=== PATIENT | male | born 1950 | race Caucasian/White ===

== ENCOUNTER 2016-09-13 11:04 | Inpatient (IN) | payer OTHER, MEDICARE ==
--- NOTE | ~2016-09-13 | CN ---
Consultation Report [facility] [address] [place] [place]. [address] NAME: CINTIA RANKIN JR : 50 STATUS : ADM IN PAT#: [id number] AGE: 65 ADM/REG DATE : 09/13/16 MR#: [id number] REPORT SERV DATE: 09/14/16 DICTATED BY: Mike GALLO DATE: 09/14/16 REPORT STATUS : Draft TRANSCRIBED BY: MODL DATE: 09/14/16 DATE OF CONSULTATION: 09/14/2016 CHIEF COMPLAINT: Urinary retention with recurrent urinary tract infection, possible sepsis. HISTORY OF PRESENT ILLNESS: Mr. Rankin is a pleasant 65-year-old white male, admitted by Dr. Rivera with urinary retention of apparent large volume, although not documented, fever to 102 and evidence of UTI with possible sepsis. He was admitted and discharged for a similar problem in July of this year. He denies previous voiding dysfunction until recently. Flomax has been started. He has a significant history of a living-related kidney transplant x2, the most recent about 10 years ago. His creatinine on admission was 1.77, now 1.43. His white count was 6.4 down to 4.1. His baseline creatinine is usually 1.5 to 2.0. PAST MEDICAL HISTORY: 1. End-stage renal disease due to IgA nephropathy, status post renal transplant x2. 2. Posttransplant diabetes mellitus. 3. Ischemic cardiomyopathy. 4. Peripheral vascular disease. 5. Chronic colchicine myopathy. 6. PTSD. 7. Polyoma virus infection with interstitial nephritis. PAST SURGICAL HISTORY: 1. Living-related kidney transplant x2. His ramona kidneys remain in place. 2. Bilateral femoropopliteal bypass. ALLERGIES: CALCIUM-CHANNEL BLOCKERS AND COLCHICINE. CURRENT MEDICATIONS: Zyloprim, alogliptin, Halfprin, Dulcolax, Wellbutrin, Coreg, Maxipime, Plavix, Glucotrol, heparin, NovoLog insulin, Imdur, Arava, Mycostatin oral, [place], Percocet, Phospha, Deltasone, Entresto, Theragran, Zocor, Prograf, Restoril, and Valcyte. He has also been given a dose of vancomycin and he is on Flomax. He has a host of p.r.n. medications. SOCIAL HISTORY: The patient denies alcohol or tobacco use. FAMILY HISTORY: Negative for urologic disease. REVIEW OF SYSTEMS: A full 12-point review of systems negative except as noted above. PHYSICAL EXAMINATION: GENERAL: Chronically ill-appearing pleasant 65-year-old gentleman. VITAL SIGNS: Blood pressure 117/65, afebrile. HEENT: Normocephalic, atraumatic. CHEST: No respiratory distress. Consultation Report [place] [address] [place] [place]. [address] NAME: CINTIA RANKIN JR : 50 STATUS : ADM IN PAT#: [id number] AGE: 65 ADM/REG DATE : 09/13/16 MR#: [id number] REPORT SERV DATE: 09/14/16 DICTATED BY: Mike GALLO DATE: 09/14/16 REPORT STATUS : Draft TRANSCRIBED BY: TOVA DATE: 09/14/16 HEART: Regular rate and rhythm. ABDOMEN: Protuberant, nontender, nondistended. He has scars from his previous surgeries. : Normal external genitalia. Indwelling Pierson catheter. EXTREMITIES: No peripheral edema noted. The patient is ambulatory currently with assistance. PERTINENT LABORATORIES: Noted. Creatinine 1.77, down to 1.43 today. White count has been normal. His urinalysis shows cloudy urine with many white cells, white cell clumps, and moderate bacteria. His culture is preliminarily growing a gram-negative Bacilli. His previous culture in July was E. coli with some resistance. He is currently on cefepime. IMPRESSION: 1. Urinary retention with new-onset voiding dysfunction. 2. Urinary tract infection; possible sepsis. 3. History of renal transplant x2. PLAN: 1. He is on Flomax and I will continue that. 2. We would leave Pierson for now and plan a voiding trial when appropriate. 3. I will check a noncontrast CT scan of his abdomen and pelvis just to better evaluate his upper tracts. The ultrasound in July was unremarkable, but I think that CT might give us a little more information. CAROLA/TOVA Mike Gallo M.D. / [id number] CC: Main Rivera M.D.
--- NOTE | ~2016-09-13 | DS ---
Discharge Summary [facility] [address] [place]. [address] NAME: CINTIA BEYER JR : 50 STATUS : DIS IN PAT#: [id number] AGE: 65 ADM/REG DATE : 09/13/16 MR#: [id number] REPORT SERV DATE: 09/30/16 DICTATED BY: MARY MAYER DATE: 09/29/16 REPORT STATUS : Draft TRANSCRIBED BY: MODSidney DATE: 09/29/16 Data Collection from hospitalization DISCHARGE DIAGNOSES: 1. Sepsis secondary to urinary tract infection. 2. History of renal transplant. 3. History of congestive heart failure. 4. Gallstone. 5. Coronary artery disease. 6. Peripheral vascular disease. 7. Post transplant diabetes mellitus. 8. Peripheral vascular disease. 9. 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 10.Posttraumatic stress disorder. 11.History of polyomavirus virus infection and interstitial nephritis related to calcium channel trent use in the past. 12.History of skin cancer. 13.Ischemic cardiomyopathy. 14.Former smoker. CONSULTATIONS: Mike Dunlap M.D., Arslan De La Cruz M.D., and Julio Pollock III, M.D. PROCEDURES: CT scan of the abdomen and pelvis without contrast, 09/14/2016. DISCHARGE MEDICATIONS: Tylenol 650-1300 mg every 8 hours as needed, Proventil two puffs via inhaler every four hours as needed, Zyloprim mg 300 mg at bedtime, Halfprin 81 mg every morning, Dulcolax 5 mg every morning, Wellbutrin 75 mg twice a day, Coreg 25 mg twice a day, cefadroxil 1 g twice a day, Plavix 75 mg every morning, Valium 5 mg three times a day as needed, Lasix 20 mg every morning and 40 mg at bedtime, Glucotrol as instructed, Imdur 30 mg every morning, Arava 20 mg daily on Sunday and as instructed, Imodium 2 mg four times a day as needed, multivitamins one tablet every morning, Nitrostat 0.4 mg sublingually as needed, Mycostatin oral suspension 5 mL at bedtime and as instructed, fish oil 1000 mg twice a day, Percocet 10/325 one tablet every four hours, Afrin nasal spray one to two sprays nasally daily as needed, Protonix 40 mg daily as needed, Deltasone 7.5 mg every morning, Actonel 35 mg every seven days as instructed, Onglyza 2.5 mg every morning, Zocor 40 mg at bedtime, Prograf 0.5 mg at bedtime and 1 mg every morning, Flomax 0.4 mg daily as instructed, Restoril 15 mg at bedtime, K-Phos 1 tablet twice a day, Valcyte 450 mg twice a day. CONDITION AT DISCHARGE: Stable. DISPOSITION: The patient was discharged home on a low-sodium, low-potassium renal/diabetic diet with activities as instructed. He would follow up with Dr. Main Rivera on 09/21/2016. He would follow up with Dr. Julio Pollock III on 10/04/2016. HOSPITAL COURSE: This is a 65-year-old man who had an initial diagnosis back in the mid s of IgA nephropathy and had undergone two living related kidney transplants, the last one from his brother approximately 10 years ago. He had stable allograft function on the second Discharge [address] [address] NAME: CINTIA BEYER : 50 STATUS : DIS IN PAT#: [id number] AGE: 65 ADM/REG DATE : 09/13/16 MR#: [id number] REPORT SERV DATE: 09/30/16 DICTATED BY: MARY MAYER DATE: 09/29/16 REPORT STATUS : Draft TRANSCRIBED BY: TOVA DATE: 09/29/16 occasion. He suffered a polyoma virus infection and an interstitial nephritis from a calcium channel trent, but he has done fairly well. His baseline creatinine runs in the mid 1.5 to 2 range. He has been discharged from here in mid July with urosepsis. He now presented with a two to three day history of fever up to 102, hypotension, and acute urinary retention as of the night prior to admission. He also had some frequency and urgency but no hematuria and no pain over the transplant. He was admitted to the hospital at this time for further evaluation and treatment. Upon admission, his urinalysis showed pyuria. The following day, a CT scan of the abdomen and pelvis without contrast was performed. He seemed to be feeling better. He was in no acute distress. He was seen in consultation by Dr. Mike Dunlap regarding urinary retention with recurrent urinary tract infection and possible sepsis. On admission, his creatinine was 1.77. This had decreased to 1.43. Urinalysis revealed cloudy urine with many white cells, white cell clumps, and moderate bacteria. His culture was preliminarily growing a gram-negative bacilli. Previous culture in July had revealed E. coli with some resistance. He was currently on cefepime. His Flomax was continued. The Pierson catheter would be kept in place for now, and a voiding trial would be performed when appropriate. White count was 4.1. On 09/15/2016, he was seen by Dr. Julio Pollock III. CT scan had shown irregularity of the gallbladder with some slight wall thickening. He maintains that he is asymptomatic from the gallbladder. The patient stopped smoking and drinking alcohol recently. His CT scan had shown cholecystitis changes that were more likely chronic than acute based on his history and findings. He had been admitted with urosepsis responding to antibiotics. The patient is on renal transplant immunosuppression in the form of tacrolimus, Valcyte, and prednisone. He is on Plavix and aspirin. He does have a diagnosis of fibromyalgia. His recommendation was to let him recover from his urosepsis and see him in the office and schedule him for outpatient laparoscopic cholecystectomy after he had completely recovered from his urosepsis. Creatinine level was now 1.69. Urine was clear. Urine C and S had revealed E. coli. Pierson catheter was in place. On 09/16/2016, he felt better overall. His abdomen was soft and nontender in the epigastrium. Liver function tests were normal. He had no new complaints. Creatinine level was 1.41. On 09/17/2016, he had no edema. His lungs were clear. He had a normal respiratory effort. He wanted the Pierson catheter to be removed. The Pierson catheter was discontinued the next day. A bladder scan was going to be performed. The patient was felt to have sepsis secondary to urinary tract infection. He had been evaluated by Occupational and Physical Therapy. He was seen in consultation by Dr. Arslan De La Cruz regarding recurrent urinary tract infections. His Pierson catheter had been removed. He has voided multiple times without any symptoms or postvoid residual. There were plans for Dr. Pollock to perform outpatient laparoscopic cholecystectomy once he was over his infection. White count was 5.4. Creatinine level was 1.34. He recommended 3 weeks of antibiotic therapy. He felt it would be okay to change him to oral cefadroxil. It was felt that he may need further evaluation such as voiding cystourethrography. This would be deferred to Dr. Dunlap. At this point, he did not recommend chronic prophylaxis, but should he have further recurrences in the future, we can consider this. Discharge planning was performed on 09/19/2016, he had no new complaints. He was afebrile, he was voiding well. Discharge instructions were given. Due to his improved and stable condition, he was discharged home with the above-stated Discharge Summary [facility] [address] [place]. [address] NAME: CINTIA BEYER : 50 STATUS : DIS IN PAT#: [id number] AGE: 65 ADM/REG DATE : 09/13/16 MR#: [id number] REPORT SERV DATE: 09/30/16 DICTATED BY: MARY MAYER DATE: 09/29/16 REPORT STATUS : Draft TRANSCRIBED BY: TOVA DATE: 09/29/16 instructions. Information collected by: Diana Cheung I submit the above information as my discharge summary. SYDNI/TOVA Mary Mayer M.D. / [id number] CC: Lolita Rose III, M.D. J. Patrick Dilworth, M.D. Hal Hill, M.D.
--- NOTE | ~2016-09-13 | CN ---
Consultation Report [facility] [address] [place]. [address] NAME: CINTIA BEYER JR : 50 STATUS : ADM IN PAT#: [id number] AGE: 65 ADM/REG DATE : 09/13/16 MR#: [id number] REPORT SERV DATE: 09/19/16 DICTATED BY: LICO DE LA CRUZ DATE: 09/19/16 REPORT STATUS : Draft TRANSCRIBED BY: MODL DATE: 09/19/16 INFECTIOUS DISEASE CONSULTATION DATE OF CONSULTATION: 09/19/2016 REASON FOR CONSULTATION: Recurrent UTI in a patient with renal transplant. HISTORY OF PRESENT ILLNESS: This is a 65-year-old man with a past medical history notable for IgA nephropathy, for which he has undergone two living related kidney transplants, the last one 10 years ago. The patient now is admitted to the hospital with recurrent urinary tract infection. His first episode of urinary tract infection occurred about a year ago. This was not at [facility]. He then was admitted here from 08/03 through 08/08 with E coli UTI with positive blood cultures and sepsis. He received IV antibiotics in the hospital, was discharged on 10 days of cefadroxil, and then given an additional 10 days after being seen in the office. He says his followup urinalysis was abnormal, but I do not have any details. He then did well until about two days before his readmission on 09/13 when he had the onset of fevers, chills, urgency, and some difficulty voiding. His fever got up to 102.7. He presented to the emergency department early on the morning of 09/13. He was afebrile here and had a normal white blood cell count, but urinalysis showed large leukocyte esterase and greater than 182 white blood cells with many white blood cell clumps. The patient was started on empiric antibiotics with vancomycin and cefepime. Urine culture has returned with the same E coli strain that he had last admission, which is sensitive to first generation cephalosporins. He was changed to IV Ancef. He did have a Pierson catheter placed. He was evaluated by Urology. A CT scan was done of the abdomen and pelvis without IV contrast, which demonstrated a 2-3 mm stone in the transplanted kidney, along with severely atrophied [place] kidney. In addition, the gallbladder wall was felt to be irregular and slightly edematous. The patient has had no fevers here in the hospital. He feels much better. His Pierson catheter was removed yesterday, and he has voided multiple times since then without any symptoms and postvoid residual was 0 mL. The patient was seen by Dr. Dunlap of Urology. In addition, he was evaluated by Dr. Pollock with plans for outpatient laparoscopic cholecystectomy once he is over this infection. In between these infections, the patient denies any sort of chronic voiding symptoms. PAST MEDICAL HISTORY: In addition to the above is notable for ischemic cardiomyopathy, status post AICD; posttransplant diabetes; peripheral vascular disease with previous bilateral femoropopliteal bypass; there is a history of interstitial nephritis secondary to Polyomavirus infection along with chronic myopathy from colchicine. ALLERGIES: MORPHINE, DOXYCYCLINE, AND DILAUDID. PRESENT MEDICATIONS: In addition to Ancef include allopurinol, alogliptin, aspirin, Dulcolax, Wellbutrin, Coreg, Plavix, Glucotrol, subcutaneous heparin, insulin sliding scale, Arava, multivitamins, Mycostatin oral suspension, Promega capsules, p.r.n. Percocet, prednisone 7.5 mg daily, Prograf, Zocor, Flomax, Restoril, and Valcyte 450 mg p.o. b.i.d. Consultation Report [address] [place]. [address] NAME: CINTIA BEYER : 50 STATUS : ADM IN [facility]#: [id number] AGE: 65 ADM/REG DATE : 09/13/16 MR#: [id number] REPORT SERV DATE: 09/19/16 DICTATED BY: LICO DE LA CRUZ DATE: 09/19/16 REPORT STATUS : Draft TRANSCRIBED BY: MODSidney DATE: 09/19/16 SOCIAL HISTORY: The patient lives with his , who is here in the room with him. Nonsmoker and nondrinker. FAMILY HISTORY: Really unremarkable to the present infectious disease issue. REVIEW OF SYSTEMS: He denies any chest pain, shortness of breath, nausea, vomiting, or diarrhea. PHYSICAL EXAMINATION: VITAL SIGNS: The patient weighs 88 kg. He is afebrile. Blood pressure 127/66, pulse 84, respiratory rate 14. GENERAL: He is alert, in no acute distress. HEAD AND NECK: Shows a clear oral cavity. There is no thrush. Supple neck. LUNGS: Clear to auscultation. CARDIAC: Regular rate and rhythm. Normal S1 and S2 without murmur, gallop, or rub. ABDOMEN: Shows active bowel sounds. Soft and nontender. There is no tenderness to palpation over the transplanted kidney in the left lower quadrant. SKIN: Shows no rash. EXTREMITIES: Without significant edema. He has a peripheral IV without phlebitis. LABORATORY STUDIES: White blood cell count 5.4, hemoglobin 11.3, platelets 117. He appears to have developed chronic thrombocytopenia as his platelet count was 89,000 back in July. Creatinine is 1.34, which appears to be his baseline. Albumin 2.4. Hemoglobin A1c back in July was 9.5. Blood cultures are negative. Urine culture as mentioned. A CT scan as mentioned. IMPRESSION: Recurrent Escherichia coli urinary tract infection in a patient with renal transplant. This recurrence developed despite his previous over three-week course of antibiotic therapy after his July admission when he had positive blood cultures. These episodes are accompanied by symptoms of urinary retention, but he does not have voiding symptoms in between episodes. His Pierson was removed yesterday, and he had no significant postvoid residual. A CT scan does show a very small stone in the transplanted kidney. PLAN: 1. I would recommend three weeks of antibiotic therapy. I think it is okay to change him to oral cefadroxil 1 g b.i.d. at discharge, and I think he could be discharged today and I have left a prescription on the chart. 2. He may need further evaluation such as voiding cystourethrography, but of course defer this to Dr. Dunlap. 3. At this point, I would not recommend chronic prophylaxis, but should he have future recurrences, would have to consider this. Consultation Report [place] [id number] [facility] [place]. [address] NAME: PEPITOCINTIA NOLBERTO NARAYAN : 50 STATUS : ADM IN [facility]#: [id number] AGE: 65 ADM/REG DATE : 09/13/16 MR#: [id number] REPORT SERV DATE: 09/19/16 DICTATED BY: LICO DE LA CRUZ DATE: 09/19/16 REPORT STATUS : Draft TRANSCRIBED BY: TOVA DATE: 09/19/16 /TOVA Lico De La Cruz M.D. / [id number] CC: Lolita Rose M.D.
--- NOTE | ~2016-09-13 | PREOPHP ---
PreOp History and Physical [address] [place]. [address] NAME: CINTIA RANKIN JR : 50 STATUS : ADM IN [facility]#: [id number] AGE: 65 ADM/REG DATE : 09/13/16 MR#: [id number] REPORT SERV DATE: 09/13/16 DICTATED BY: JOON RIVERA DATE: 09/13/16 REPORT STATUS : Draft TRANSCRIBED BY: MODSidney DATE: 09/13/16 REASON FOR ADMISSION: 1. Urosepsis. The patient presents back with dysuria, acute retention. Urinalysis shows pyuria with a fever of 102 and features suggestive of underlying urosepsis. He was just discharged here in mid July with similar complaints. 2. Living-related kidney transplant. This is his second transplant. 3. Posttransplant diabetes mellitus. 4. Ischemic cardiomyopathy post AICD. 5. Peripheral vascular disease with prior bilateral femoral-popliteal bypass. 6. 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 7. Posttraumatic stress disorder related to [place] War. 8. Prior history of polyomavirus infection and interstitial nephritis related to calcium channel trent use in the past. PLAN: 1. Hydrating him. 2. Placed on cefepime. He had E coli in his urine previously and it is likely the same organism. 3. Get Urology to see him on this occasion. 4. Monitor his blood sugars. 5. Renal diet. 6. Resumed his transplant medications. At this time, I am going to change his immunosuppression unless there are signs of worsening sepsis. HISTORY OF PRESENT ILLNESS: Mr. Cintia Rankin is well known to me. He has initial diagnosis back in the mid 90s of IgA nephropathy and has undergone two living-related kidney transplants, the last one from his brother approximately 10 years ago. He has stable allograft function on the second occasion. He suffered a polyomavirus infection and an interstitial nephritis from a calcium channel trent, but he has done fairly well. His baseline creatinine runs in the mid 1.5 to 2.0 range. He was just discharged from here in mid July with urosepsis. He now presents with a 2-3 day history of fever up to 102, hypotension, and an acute urinary retention as of last night. He has also had some frequency and some urgency, but no hematuria, no pain over the transplant. Denies any shortness of breath. No chest pain. No history of flank pain. PAST MEDICAL HISTORY: As indicated above. ALLERGIES: HE IS ALLERGIC TO CALCIUM CHANNEL BLOCKERS. HE IS ALLERGIC TO COLCHICINE. SOCIAL HISTORY: He does not smoke cigarettes. No alcohol or medication or street drug usage. FAMILY HISTORY: Negative for kidney disease or end-stage renal failure in his parents. His system review is as per the HPI. MEDICATIONS: His home medications have been reviewed and include Zyloprim, aspirin, carvedilol, Imdur, furosemide, he is on Protonix, Prograf, Restoril, Carafate, valacyclovir, PreOp History and Physical [address] [address] NAME: CINTIA RANKIN JR : 50 STATUS : ADM IN [facility]#: [id number] AGE: 65 ADM/REG DATE : 09/13/16 MR#: [id number] REPORT SERV DATE: 09/13/16 DICTATED BY: JOON RIVERA DATE: 09/13/16 REPORT STATUS : Draft TRANSCRIBED BY: EVAL DATE: 09/13/16 Actonel, Percocet, and Arava. PHYSICAL EXAMINATION: GENERAL: He is a chronically ill-appearing gentleman, but otherwise in no acute distress. VITAL SIGNS: His systolic blood pressure is running in the 110s. His heart rate is a paced atrial rhythm. He is currently afebrile. HEENT: His pupils are reacting to light. He is pale. He is not jaundiced. Oral mucosa is dry. No pharyngitis. NECK: Supple. No thyromegaly. Trachea is central. Air entry is equal bilaterally. There are no carotid bruits heard. CHEST: Clear to auscultation. ABDOMEN: Distended. There is no hepatosplenomegaly. There is no tenderness, guarding, or rebound. He has a transplant in left lower quadrant and it is nontender and no rebound noted. : There is indwelling Pierson catheter. Urine is clear. EXTREMITIES: There is 1+ peripheral edema. Peripheral pulses are present in dorsalis pedis and posterior tibial. NEUROLOGIC: He is awake, alert, and oriented to time, place, and person. No gross neurological deficit described. Cranial nerves are grossly intact. Muscle bulk and tone are reduced and that is the chronic ongoing issue for him. SKIN: No rash reported. LYMPHATIC: He has no supraclavicular, axillary, or inguinal adenopathy. IMAGING: His chest x-ray shows a persistent small bilateral pleural effusion and some stable cardiomegaly is noted. LABORATORY DATA: His sodium is 139, potassium 4.0, chloride 108, CO2 of 24, BUN 42, creatinine 1.77. Other labs are pending at this time. His hemoglobin is 12.6, hematocrit 37.6, his white count is 6.4, his platelet counts are 93,000. His urinalysis shows pyuria. MG/MODL Joon Rivera M.D. / [id number] CC: Joon Rivera M.D.
--- NOTE | ~2016-09-13 | CN ---
Consultation Report [facility] [address] [place]. [address] NAME: CINTIA BEYER JR : 50 STATUS : ADM IN PAT#: [id number] AGE: 65 ADM/REG DATE : 09/13/16 MR#: [id number] REPORT SERV DATE: 09/15/16 DICTATED BY: ERIC POLLOCK III DATE: 09/15/16 REPORT STATUS : Draft TRANSCRIBED BY: MODL DATE: 09/15/16 CONSULTATION DATE OF CONSULTATION: 09/15/2016 HISTORY OF PRESENT ILLNESS: A 65-year-old male with admitted with sepsis believed to be urosepsis and has responded to antibiotic therapy. He is presently being maintained on cefepime (Maxipime) 1 g every six hours. The patient is also status post of renal transplant with his 2nd renal transplant having been done and is on anti-suppressive medicines for any rejection. The patient was noted on CT scan to have irregularity of his gallbladder with some slight wall thickening. He maintains that he is asymptomatic from the gallbladder. SOCIAL HISTORY: He quit smoking and drinking alcohol recently. PAST MEDICAL HISTORY: AICD [place] [facility], CABG, congestive heart failure, dysrhythmias, high cholesterol, hypertension, stent in his right groin, arthritis, fibromyalgia, difficulty swallowing, GERD, ulcer disease, gastritis, history of kidney transplants x2 followed by Dr. Rivera, also had skin cancer that was not melanoma in the past. He has a history of diabetes mellitus, average blood sugar fasting was 160-170; some history of depression. PAST SURGICAL HISTORY: Includes a right kidney transplant in 1997, left kidney transplant in 2003, CABG 2010, AICD in 2012, stent in the right groin 2010, EGD and dilation 06/2015, Dr. Damon. PHYSICAL EXAMINATION: GENERAL: The patient is an obese white male, in no acute distress. HEENT: Unremarkable. NECK: Supple. CHEST: Clear. HEART: Regular rate and rhythm. ABDOMEN: Soft with very mild tenderness on deep palpation in the epigastrium with no rebound. No organomegaly. EXTREMITIES: There were no other abnormalities of the extremities. IMPRESSION: The patient has CT scan showing cholecystitis changes that are more likely chronic than acute based on patient's history and findings. He is admitted with urosepsis responding to antibiotics. The patient on renal transplant immunosuppression in the form of tacrolimus, Valcyte, and prednisone. He has history of CABG and peripheral vascular disease, on Plavix and aspirin. Fibromyalgia also diagnosed. RECOMMENDATION: Let him recover from his urosepsis and see him in the office and schedule him for outpatient laparoscopic cholecystectomy after he has completely recovered from his urosepsis. Risks of surgery discussed with the patient and the laparoscopic cholecystectomy as a day surgery. The patient discussed as a likely scenario. Consultation Report [address] [place]. [address] NAME: CINTIA BEYER : 50 STATUS : ADM IN PAT#: [id number] AGE: 65 ADM/REG DATE : 09/13/16 MR#: [id number] REPORT SERV DATE: 09/15/16 DICTATED BY: ERIC POLLOCK III DATE: 09/15/16 REPORT STATUS : Draft TRANSCRIBED BY: TOVA DATE: 09/15/16 RB/TOVA Eric Pollock III, M.D. / [id number] CC: Main Rivera M.D.
[2016-09-13 10:08] LABS: BASOPHILS 0 %; EOSINOPHILS 0.3 %; EOSINOPHILS ABSOLUTE 0.02 10/3/uL (0.0-0.53); ER CBC TAT 0 Hrs 10 Mins; HEMATOCRIT 37.8 % (40.0-51.0); HEMOGLOBIN 12.6 g/dL (13.6-17.8); IMMATURE GRANULOCYTES 0.2 %; IMMATURE GRANULOCYTES ABSOLUTE 0.01 10/3/uL (0.0-0.11); LYMPHOCYTES 4.1 %; LYMPHOCYTES ABSOLUTE 0.26 10/3/uL (0.67-4.30); MEAN CORPUS HGB CONC 33.3 g/dL (32.0-36.0); MEAN CORPUSCULAR HEMOGLOB 35.5 pg (26.0-34.0); MEAN CORPUSCULAR VOLUME 106.5 fL (80-100); MEAN PLATELET VOLUME 10.9 fL (9.2-13.0); MONOCYTES 6.8 %; MONOCYTES ABSOLUTE 0.43 10/3/uL (0.21-1.20); NEUTROPHILS 88.6 %; NEUTROPHILS ABSOLUTE 5.65 10/3/uL (2.02-8.40); PLATELET COUNT 93 10/3/uL (150-400); RBC DISTRIBUTION WIDTH 16.1 % (12.0-16.0); RED CELL COUNT 3.55 10/6/uL (4.7-6.1); WHITE BLOOD CELLS 6.4 10/3/uL (4.5-10.5)
[2016-09-13 10:10] LABS: MANUAL DIFF NO %
[2016-09-13 10:21] LABS: CALCIUM, SERUM 8.5 MG/DL (8.5-10.4); CHLORIDE, SERUM 108 MMOL/L (96-112); CO2 (CARBON DIOXIDE) 24 MMOL/L (24-34); SGOT(AST) 50 U/L (5-40); SGPT(ALT) 79 U/L (5-65); SODIUM, SERUM 139 MMOL/L (135-148); TOTAL BILIRUBIN 0.6 MG/DL (0-1.2); TOTAL PROTEIN 6.8 G/DL (6.0-8.5)
[2016-09-13 10:23] LABS: A/G RATIO 0.8 (0.7-1.9); ALKALINE PHOSPHATASE 131 U/L (45-117); BUN (BLOOD UREA NITROGEN) 42 MG/DL (6-23); CREATININE 1.77 MG/DL (0.70-1.30); GFR AFRICAN AMERICAN 46 ML/MIN (>=60); GFR NON AFRICAN AMERICAN 39 ML/MIN (>=60); GLOBULIN 3.8 G/DL (2.5-4.1); GLUCOSE, SERUM 99 MG/DL (60-99)
[2016-09-13 10:24] LABS: ASCORBIC ACID (UR NOT ORDER) NEG (NEG); BILIRUBIN, URINE NEGATIVE (NEG); ER URINALYSIS TAT 0 Hrs 13 Mins; KETONE, URINE NEGATIVE (NEG); LEUKOCYTE ESTERASE(NOT OR LARGE (NEG); NITRITE (URINE) NEG (NEG)
[~2016-09-13 11:04] MED LIST: 8 HOUR650 MG PO; ACTONEL35 MG PO; AFRIN15 NAS; ARAVA20 PO; ASA5GR PO; ASABAYER PO; BIST PO; CAT1 PO; COREG25 PO; CORRECTOL5 MG PO; DURICEF PO; FISH-EPA1000 MG PO; GANCICLOVIR PO; GLUCOTRO10 PO; GLUCOTROL5 PO; GLUCXL10 PO; GLUCXL5 PO; HALF81 PO; IMDUR30 PO; IMDUR60 PO; IMOD PO; K-PHO1 PO; K-PHO2 OR; K-PHOS NEUTRAL PO; L40 PO; MULTIPLE VIT PO; MULTIVIT/MIN PO; NASONEX NAS; NEUTRA-PHOS PO; NYS500UDL PO; ONGLYZA2.5 MG PO; OS500+D PO; OSTEO BI-FLEX1 EACH PO; P5 PO; PERCOCET 10/3251 TAB PO; PERCOCET1 TA4 PO; PLAVIX PO; PREDNISOLO15 MG/5 M1 PO; PROGRAF0.5 PO; PROGRAF1 PO; PROTONIX PO; PROVHFA INH; REST15 PO; SUCR PO; V5 PO; VALCYTE PO; VERELAN240 MG PO; VYTORIN 10/20 T1 TAB PO; WELL75 PO; WELLXL150 PO; Z300 PO; ZOCOR40 PO
[2016-09-13] MEDS ORDERED: SACU1TAB PO (11:41)
[2016-09-13] MEDS ORDERED: COREG25 PO ×2 (11:44)
[2016-09-13] MEDS ORDERED: L20 PO (11:46)
[2016-09-13] MEDS ORDERED: L40 PO (11:47)
[2016-09-13] MEDS ORDERED: NYS500UDL PO (11:50)
[2016-09-13] MEDS ORDERED: NITROSTAT0.4 MG SL (11:52)
[2016-09-14 04:35] LABS: BASOPHILS 0 %; EOSINOPHILS 0.7 %; EOSINOPHILS ABSOLUTE 0.03 10/3/uL (0.0-0.53); HEMOGLOBIN 10.9 g/dL (13.6-17.8); IMMATURE GRANULOCYTES 0.5 %; IMMATURE GRANULOCYTES ABSOLUTE 0.02 10/3/uL (0.0-0.11); LYMPHOCYTES 5.1 %; LYMPHOCYTES ABSOLUTE 0.21 10/3/uL (0.67-4.30); MEAN CORPUS HGB CONC 32.9 g/dL (32.0-36.0); MEAN CORPUSCULAR HEMOGLOB 35.6 pg (26.0-34.0); MEAN CORPUSCULAR VOLUME 108.2 fL (80-100); MEAN PLATELET VOLUME 10.9 fL (9.2-13.0); MONOCYTES 6.1 %; MONOCYTES ABSOLUTE 0.25 10/3/uL (0.21-1.20); NEUTROPHILS 87.6 %; NEUTROPHILS ABSOLUTE 3.62 10/3/uL (2.02-8.40); PLATELET COUNT 75 10/3/uL (150-400); RBC DISTRIBUTION WIDTH 16.2 % (12.0-16.0); RED CELL COUNT 3.06 10/6/uL (4.7-6.1); WHITE BLOOD CELLS 4.1 10/3/uL (4.5-10.5)
[2016-09-14 04:40] LABS: HEMATOCRIT 33.1 % (40.0-51.0); MANUAL DIFF NO %
[2016-09-14 04:50] LABS: CALCIUM, SERUM 7.8 MG/DL (8.5-10.4); CHLORIDE, SERUM 108 MMOL/L (96-112); CO2 (CARBON DIOXIDE) 23 MMOL/L (24-34); CREATININE 1.43 MG/DL (0.70-1.30); GFR AFRICAN AMERICAN 59 ML/MIN (>=60); GFR NON AFRICAN AMERICAN 51 ML/MIN (>=60); PHOSPHORUS, SERUM 2.7 MG/DL (2.5-4.5); POTASSIUM, SERUM 4.3 MMOL/L (3.5-5.3); SGOT(AST) 26 U/L (5-40); SGPT(ALT) 54 U/L (5-65); SODIUM, SERUM 139 MMOL/L (135-148); TOTAL BILIRUBIN 0.4 MG/DL (0-1.2); TOTAL PROTEIN 5.5 G/DL (6.0-8.5)
[2016-09-14 04:51] LABS: A/G RATIO 0.7 (0.7-1.9); ALBUMIN 2.3 G/DL (3.5-5.0); ALKALINE PHOSPHATASE 101 U/L (45-117); BUN (BLOOD UREA NITROGEN) 38 MG/DL (6-23); GLOBULIN 3.2 G/DL (2.5-4.1); GLUCOSE, SERUM 193 MG/DL (60-99)
[2016-09-14 05:47] LABS: PLATELET ESTIMATE DEC (ADEQUATE)
[2016-09-15 03:28] LABS: BASOPHILS 0 %; EOSINOPHILS 0.5 %; EOSINOPHILS ABSOLUTE 0.02 10/3/uL (0.0-0.53); HEMATOCRIT 31.9 % (40.0-51.0); HEMOGLOBIN 10.6 g/dL (13.6-17.8); IMMATURE GRANULOCYTES 0.3 %; IMMATURE GRANULOCYTES ABSOLUTE 0.01 10/3/uL (0.0-0.11); LYMPHOCYTES 7.8 %; MANUAL DIFF NO %; MEAN CORPUS HGB CONC 33.2 g/dL (32.0-36.0); MEAN CORPUSCULAR HEMOGLOB 35.7 pg (26.0-34.0); MEAN CORPUSCULAR VOLUME 107.4 fL (80-100); MEAN PLATELET VOLUME 11.3 fL (9.2-13.0); MONOCYTES 8.1 %; MONOCYTES ABSOLUTE 0.31 10/3/uL (0.21-1.20); NEUTROPHILS 83.3 %; NEUTROPHILS ABSOLUTE 3.19 10/3/uL (2.02-8.40); PLATELET COUNT 84 10/3/uL (150-400); RED CELL COUNT 2.97 10/6/uL (4.7-6.1); WHITE BLOOD CELLS 3.8 10/3/uL (4.5-10.5)
[2016-09-15 03:34] LABS: INTERNATIONAL NORMAL RATI 1.1 UNITS (-); PROTIME (NOT ORD) 13.8 SEC (12.0-14.5)
[2016-09-15 03:45] LABS: A/G RATIO 0.7 (0.7-1.9); ALBUMIN 2.2 G/DL (3.5-5.0); ALKALINE PHOSPHATASE 104 U/L (45-117); BUN (BLOOD UREA NITROGEN) 41 MG/DL (6-23); CALCIUM, SERUM 7.7 MG/DL (8.5-10.4); CHLORIDE, SERUM 107 MMOL/L (96-112); CO2 (CARBON DIOXIDE) 24 MMOL/L (24-34); CREATININE 1.69 MG/DL (0.70-1.30); DIRECT BILIRUBIN 0.1 MG/DL (0.0-0.4); GFR AFRICAN AMERICAN 48 ML/MIN (>=60); GFR NON AFRICAN AMERICAN 42 ML/MIN (>=60); GLOBULIN 3.2 G/DL (2.5-4.1); INDIRECT BILIRUBIN(NOT ORDER) 0.6 MG/DL (0.1-0.9); PHOSPHORUS, SERUM 2.8 MG/DL (2.5-4.5); POTASSIUM, SERUM 4.2 MMOL/L (3.5-5.3); SGOT(AST) 30 U/L (5-40); SGPT(ALT) 55 U/L (5-65); SODIUM, SERUM 141 MMOL/L (135-148); TOTAL BILIRUBIN 0.7 MG/DL (0-1.2); TOTAL PROTEIN 5.4 G/DL (6.0-8.5)
[2016-09-15 03:46] LABS: GLUCOSE, SERUM 122 MG/DL (60-99)
[2016-09-15 10:15] LABS: WBC (NOT ORDERED) (RFLEX) > 182 (0-5)
[2016-09-16 05:37] LABS: BASOPHILS 0 %; EOSINOPHILS 1.2 %; EOSINOPHILS ABSOLUTE 0.05 10/3/uL (0.0-0.53); HEMATOCRIT 33.8 % (40.0-51.0); HEMOGLOBIN 11.1 g/dL (13.6-17.8); IMMATURE GRANULOCYTES 0.7 %; IMMATURE GRANULOCYTES ABSOLUTE 0.03 10/3/uL (0.0-0.11); LYMPHOCYTES 7.5 %; LYMPHOCYTES ABSOLUTE 0.32 10/3/uL (0.67-4.30); MEAN CORPUS HGB CONC 32.8 g/dL (32.0-36.0); MEAN CORPUSCULAR HEMOGLOB 35.7 pg (26.0-34.0); MEAN CORPUSCULAR VOLUME 108.7 fL (80-100); MEAN PLATELET VOLUME 11.4 fL (9.2-13.0); MONOCYTES 8.2 %; MONOCYTES ABSOLUTE 0.35 10/3/uL (0.21-1.20); NEUTROPHILS 82.4 %; NEUTROPHILS ABSOLUTE 3.54 10/3/uL (2.02-8.40); PLATELET COUNT 95 10/3/uL (150-400); RBC DISTRIBUTION WIDTH 15.8 % (12.0-16.0); RED CELL COUNT 3.11 10/6/uL (4.7-6.1); WHITE BLOOD CELLS 4.3 10/3/uL (4.5-10.5)
[2016-09-16 05:43] LABS: MANUAL DIFF NO %
[2016-09-16 06:00] LABS: A/G RATIO 0.6 (0.7-1.9); ALBUMIN 2.2 G/DL (3.5-5.0); ALKALINE PHOSPHATASE 115 U/L (45-117); CALCIUM, SERUM 8.3 MG/DL (8.5-10.4); CHLORIDE, SERUM 110 MMOL/L (96-112); CO2 (CARBON DIOXIDE) 24 MMOL/L (24-34); CREATININE 1.41 MG/DL (0.70-1.30); GFR AFRICAN AMERICAN 60 ML/MIN (>=60); GFR NON AFRICAN AMERICAN 52 ML/MIN (>=60); GLOBULIN 3.4 G/DL (2.5-4.1); GLUCOSE, SERUM 116 MG/DL (60-99); PHOSPHORUS, SERUM 2.4 MG/DL (2.5-4.5); POTASSIUM, SERUM 4.2 MMOL/L (3.5-5.3); SGOT(AST) 31 U/L (5-40); SGPT(ALT) 57 U/L (5-65); SODIUM, SERUM 144 MMOL/L (135-148); TOTAL BILIRUBIN 0.3 MG/DL (0-1.2); TOTAL PROTEIN 5.6 G/DL (6.0-8.5)
[2016-09-16 06:05] LABS: BUN (BLOOD UREA NITROGEN) 37 MG/DL (6-23)
[2016-09-17 06:33] LABS: BASOPHILS 0 %; EOSINOPHILS 0.5 %; EOSINOPHILS ABSOLUTE 0.02 10/3/uL (0.0-0.53); HEMATOCRIT 35.5 % (40.0-51.0); HEMOGLOBIN 11.7 g/dL (13.6-17.8); IMMATURE GRANULOCYTES 0.5 %; IMMATURE GRANULOCYTES ABSOLUTE 0.02 10/3/uL (0.0-0.11); MANUAL DIFF NO %; MEAN CORPUSCULAR HEMOGLOB 35.8 pg (26.0-34.0); MEAN CORPUSCULAR VOLUME 108.6 fL (80-100); MEAN PLATELET VOLUME 10.8 fL (9.2-13.0); MONOCYTES 9.2 %; MONOCYTES ABSOLUTE 0.41 10/3/uL (0.21-1.20); NEUTROPHILS 80.8 %; NEUTROPHILS ABSOLUTE 3.59 10/3/uL (2.02-8.40); PLATELET COUNT 100 10/3/uL (150-400); RBC DISTRIBUTION WIDTH 15.7 % (12.0-16.0); RED CELL COUNT 3.27 10/6/uL (4.7-6.1); WHITE BLOOD CELLS 4.4 10/3/uL (4.5-10.5)
[2016-09-17 06:45] LABS: ALBUMIN 2.3 G/DL (3.5-5.0); BUN (BLOOD UREA NITROGEN) 32 MG/DL (6-23); CALCIUM, SERUM 8.7 MG/DL (8.5-10.4); CHLORIDE, SERUM 111 MMOL/L (96-112); CO2 (CARBON DIOXIDE) 25 MMOL/L (24-34); CREATININE 1.54 MG/DL (0.70-1.30); GFR AFRICAN AMERICAN 54 ML/MIN (>=60); GFR NON AFRICAN AMERICAN 47 ML/MIN (>=60); GLUCOSE, SERUM 117 MG/DL (60-99); PHOSPHORUS, SERUM 2.5 MG/DL (2.5-4.5); POTASSIUM, SERUM 4.4 MMOL/L (3.5-5.3); SODIUM, SERUM 143 MMOL/L (135-148)
[2016-09-18 04:34] LABS: BASOPHILS 0.2 %; BASOPHILS ABSOLUTE 0.01 10/3/uL (0.0-0.16); EOSINOPHILS 0.6 %; EOSINOPHILS ABSOLUTE 0.03 10/3/uL (0.0-0.53); HEMATOCRIT 34.4 % (40.0-51.0); HEMOGLOBIN 11.3 g/dL (13.6-17.8); IMMATURE GRANULOCYTES 0.9 %; IMMATURE GRANULOCYTES ABSOLUTE 0.05 10/3/uL (0.0-0.11); LYMPHOCYTES ABSOLUTE 0.38 10/3/uL (0.67-4.30); MEAN CORPUS HGB CONC 32.8 g/dL (32.0-36.0); MEAN CORPUSCULAR HEMOGLOB 35.6 pg (26.0-34.0); MEAN CORPUSCULAR VOLUME 108.5 fL (80-100); MEAN PLATELET VOLUME 10.8 fL (9.2-13.0); MONOCYTES ABSOLUTE 0.49 10/3/uL (0.21-1.20); NEUTROPHILS 82.3 %; NEUTROPHILS ABSOLUTE 4.48 10/3/uL (2.02-8.40); PLATELET COUNT 117 10/3/uL (150-400); RBC DISTRIBUTION WIDTH 15.5 % (12.0-16.0); RED CELL COUNT 3.17 10/6/uL (4.7-6.1); WHITE BLOOD CELLS 5.4 10/3/uL (4.5-10.5)
[2016-09-18 04:36] LABS: MANUAL DIFF NO %
[2016-09-18 04:48] LABS: ALBUMIN 2.4 G/DL (3.5-5.0); BUN (BLOOD UREA NITROGEN) 31 MG/DL (6-23); CALCIUM, SERUM 9.1 MG/DL (8.5-10.4); CHLORIDE, SERUM 109 MMOL/L (96-112); CO2 (CARBON DIOXIDE) 27 MMOL/L (24-34); CREATININE 1.34 MG/DL (0.70-1.30); GFR AFRICAN AMERICAN 64 ML/MIN (>=60); GFR NON AFRICAN AMERICAN 55 ML/MIN (>=60); GLUCOSE, SERUM 91 MG/DL (60-99); PHOSPHORUS, SERUM 2.4 MG/DL (2.5-4.5); POTASSIUM, SERUM 4.6 MMOL/L (3.5-5.3); SODIUM, SERUM 144 MMOL/L (135-148)
[2016-09-19] MEDS ORDERED: FLOMAX4 PO (13:38)
[2016-09-19] MEDS ORDERED: CEFADROXIL1 GM PO (13:42)
[2016-11-02] MEDS ORDERED: COREG25 PO (12:12)
== END 2016-09-19 15:51 | disposition home or self-care (01) | DRG 872 ==
LOC: ER 11:04 → IMCU 12:16 → 2SO 09-14 14:35
PROVIDERS: Emergency Medicine; Internal Medicine Nephrology; Registered Nurse
DX: A41.9 Sepsis, unspecified organism (principal); N17.9 Acute kidney failure, unspecified; G72.0 Drug-induced myopathy; E11.21 Type 2 diabetes mellitus with diabetic nephropathy; Z94.0 Kidney transplant status; K80.10 Calculus of gallbladder with chronic cholecystitis without obstruction; D69.6 Thrombocytopenia, unspecified; N39.0 Urinary tract infection, site not specified; M79.7 Fibromyalgia; I25.5 Ischemic cardiomyopathy; I73.9 Peripheral vascular disease, unspecified; N20.0 Calculus of kidney; B96.20 Unspecified Escherichia coli [E. coli] as the cause of diseases classified elsewhere; T50.4X5A Adverse effect of drugs affecting uric acid metabolism, initial encounter; I25.10 Atherosclerotic heart disease of native coronary artery without angina pectoris; M19.90 Unspecified osteoarthritis, unspecified site; F43.12 Post-traumatic stress disorder, chronic; Z87.891 Personal history of nicotine dependence; Z79.4 Long term (current) use of insulin; Z95.810 Presence of automatic (implantable) cardiac defibrillator; Y92.009 Unspecified place in unspecified non-institutional (private) residence as the place of occurrence of the external cause; Y36.90XA War operations, unspecified, initial encounter; Z95.1 Presence of aortocoronary bypass graft
CPT/HCPCS: 71010; 71020; 74176; 80053; 80069; 81001; 82248; 82330; 82962; 83735; 83880; 84100; 85025; 85610; 87040; 87077; 87086; 87186; 87641; 93005; 97161-GP; 97165-GO; 99285; A9270-GY; G8978-CH-GP; G8979-CH-GP; G8980-CH-GP; G8987-CH-GO; G8988-CH-GO; G8989-CH-GO; J0690; J0692; J3370; J7507

== ENCOUNTER 2016-10-18 08:22 | Observation (INO) | payer MEDICARE ==
[2016-10-16 13:37] LABS: BASOPHILS 0 %; EOSINOPHILS 0.7 %; EOSINOPHILS ABSOLUTE 0.05 10/3/uL (0.0-0.53); HEMOGLOBIN 12.9 g/dL (13.6-17.8); IMMATURE GRANULOCYTES 0.6 %; IMMATURE GRANULOCYTES ABSOLUTE 0.04 10/3/uL (0.0-0.11); LYMPHOCYTES ABSOLUTE 0.41 10/3/uL (0.67-4.30); MEAN CORPUS HGB CONC 32.7 g/dL (32.0-36.0); MEAN CORPUSCULAR HEMOGLOB 35.9 pg (26.0-34.0); MEAN PLATELET VOLUME 10.6 fL (9.2-13.0); MONOCYTES 7.5 %; MONOCYTES ABSOLUTE 0.51 10/3/uL (0.21-1.20); NEUTROPHILS 85.2 %; NEUTROPHILS ABSOLUTE 5.81 10/3/uL (2.02-8.40); PLATELET COUNT 115 10/3/uL (150-400); RBC DISTRIBUTION WIDTH 15.9 % (12.0-16.0); RED CELL COUNT 3.59 10/6/uL (4.7-6.1); WHITE BLOOD CELLS 6.8 10/3/uL (4.5-10.5)
[2016-10-16 13:38] LABS: HEMATOCRIT 39.5 % (40.0-51.0); MANUAL DIFF NO %
[2016-10-16 13:44] LABS: INTERNATIONAL NORMAL RATI 1.1 UNITS (-); PARTIAL THROMBO TIME 29.2 SEC (22.5-37.2); PROTIME (NOT ORD) 14.4 SEC (12.0-14.5)
[2016-10-16 13:52] LABS: A/G RATIO 0.9 (0.7-1.9); ALBUMIN 3.2 G/DL (3.5-5.0); ALKALINE PHOSPHATASE 167 U/L (45-117); BUN (BLOOD UREA NITROGEN) 37 MG/DL (6-23); CALCIUM, SERUM 8.8 MG/DL (8.5-10.4); CHLORIDE, SERUM 103 MMOL/L (96-112); CO2 (CARBON DIOXIDE) 36 MMOL/L (24-34); CREATININE 1.63 MG/DL (0.70-1.30); GFR AFRICAN AMERICAN 50 ML/MIN (>=60); GFR NON AFRICAN AMERICAN 44 ML/MIN (>=60); GLOBULIN 3.4 G/DL (2.5-4.1); GLUCOSE, SERUM 187 MG/DL (60-99); POTASSIUM, SERUM 4.1 MMOL/L (3.5-5.3); SGOT(AST) 32 U/L (5-40); SGPT(ALT) 54 U/L (5-65); SODIUM, SERUM 140 MMOL/L (135-148); TOTAL BILIRUBIN 0.6 MG/DL (0-1.2); TOTAL PROTEIN 6.6 G/DL (6.0-8.5)
--- NOTE | ~2016-10-18 | OP ---
Record Of Operation [facility] [address] [place]. [address] NAME: CINTIA BEYER JR : 50 STATUS : ADM Tyrell PAT#: [id number] AGE: 65 ADM/REG DATE : 10/18/16 MR#: [id number] REPORT SERV DATE: 10/18/16 DICTATED BY: ERIC POLLOCK III DATE: 10/18/16 REPORT STATUS : Draft TRANSCRIBED BY: MODL DATE: 10/18/16 DATE OF PROCEDURE: 10/18/2016 PREOPERATIVE DIAGNOSIS: Cholecystitis with symptomatic findings, but no stones, just gallbladder distortion and thickening on the CT scan in a patient who is postop renal transplants x2 with a number of other comorbid issues including diabetes and AICD. POSTOPERATIVE DIAGNOSIS: Cholecystitis with no stones with a very thick friable gallbladder that was fat infiltrated and thick with cholesterolosis changes on the mucosa with a normal intraoperative cholangiogram. Liver showing some occult abnormality with possible micronodularity, but no misbah cirrhosis is grossly seen. PROCEDURE: Laparoscopic cholecystectomy with intraoperative cholangiogram, control of intraoperative bleeding in the gallbladder bed with clips, cautery, and Surgicel with Surgiflo. The case was followed by a block to the right costal margin using 30 mL of 0.5% Marcaine with epinephrine to block the 6th and 7th intercostal nerves. MENS LOCKER ROOM ATTENDANT: Yadiel Pollock RN, [facility] SPECIMEN REMOVED: Gallbladder. ESTIMATED BLOOD LOSS: 250 mL. COMPLICATIONS: Bleeding of the gallbladder bed, which was controlled. Postoperative diagnosis consistent with findings preoperatively. DRAINS USED: A #19 Michael drain in the right gutter. Surgiflo and Surgicel were also used in the bed in addition to clips for the gallbladder bed bleeding. PROCEDURE IN DETAIL: The patient was brought to the operating room and time-out procedure called and complete agreement of all hospital staff in the room with the procedure, allergies, and anticipated care of this patient. After this had been completed, time in was called and the procedure proceeded. The patient was prepped and draped in routine fashion. Adequate general anesthesia and the area of the abdomen approached through a right costal margin small incision, an open trocar technique used to place the 12 mm balloon port through the falciform ligament under open direct control avoiding the liver edge. The abdomen was then insufflated with carbon dioxide gas to 15 mmHg pressure and the 0 degree angled operative telescope placed in the peritoneal cavity. Internal exam showed postoperative changes down the lower abdomen from previous renal transplants and the umbilicus area was devoid of adhesions. A small curvilinear incision was made beneath the umbilicus and an 11 mm trocar placed in the peritoneal cavity under visual observation. One 5 mm trocar was placed in the right costal margin in the right mid axillary line under Record Of Operation [place] [id number] [facility] [place]. [address] NAME: CINTIA BEYER JR : 50 STATUS : ADM Tyrell PAT#: [id number] AGE: 65 ADM/REG DATE : 10/18/16 MR#: [id number] REPORT SERV DATE: 10/18/16 DICTATED BY: ERIC POLLOCK III DATE: 10/18/16 REPORT STATUS : Draft TRANSCRIBED BY: TOVA DATE: 10/18/16 video observation. Internal exam was performed showing relatively dark colored liver with a fairly rough Edith's capsule that was almost hyperemic as opposed to the cirrhosis changes that are seen that are more pale. There was a fairly micronodular appearance of the surface. The transverse colon and duodenum were closely associated with the gallbladder, but not adhered. The gallbladder, which was grossly abnormal with great big lobules of adipose tissue were noted with feathery adhesions to the duodenum, which were taken down with blunt dissection. The gallbladder was grasped and gently retracted superiorly and anteriorly and dissection carried out in the area of the cystic duct. The cystic artery was noted to be behind the cystic duct and difficult to approach until the cystic duct could be divided. After the cystic duct was skeletonized, a titanium clip was placed on the infundibular side. A percutaneously introduced Arrow catheter was then placed through a small incision at the site of the 3 mm cystic duct and held in place with partially collapsed titanium clip. Real-time C-arm intraoperative cholangiography was then obtained showing good flow into the duodenum and reasonably good flow into the hepatic radicles, although tertiary filling was not achieved due to preferential flow distally. There were no filling defects or impedance to flow. The cystic duct was noted to be relatively normal and safely away from the junction of the cystic duct and common duct was our catheter insertion point. After this was noted, the catheter and partially collapsed clip were removed, and after assurance that this was the cystic duct going up into the gallbladder with a critical view having been accomplished, the cystic duct was divided between appropriate clips. Dissection was then gently carried out and the cystic artery identified and clipped with two clips distally and one proximally. The retrograde dissection of the gallbladder was then carried out an extremely friable, hemorrhagic gallbladder bed. Significant sinusoidal type bleeding was encountered in the gallbladder bed immediately behind the infundibulum, which required suctioning and multiple clips to control the bleeding. After this had been done, the gallbladder was removed in a retrograde fashion and placed in an Endobag and delivered through the right costal margin incision. Areas were then reinspected and good hemostasis achieved and Surgiflo and Surgicel applied to the gallbladder fossa, and a 19 Michael drain placed along the right gutter. Irrigation was carried out with copious amounts of normal saline that was heparinized to break up clots. A lot of clots were suctioned from the peritoneal cavity that was the result of the significant bleeding that we encountered. Bleeding was sufficiently controlled prior to closure. The trocars were then all removed under video observation. The two larger trocar sites were closed with multiple [id number] sutures of 0 Vicryl. The subcutaneous tissue was closed with interrupted 3-0 Vicryl and the skin closed with Dermabond. The right costal margin block was accomplished as described and the procedure concluded. Estimated blood Record Of [place] [id number] [place]. [address] NAME: CINTIA BEYER JR : 50 STATUS : ADM Tyrell PAT#: [id number] AGE: 65 ADM/REG DATE : 10/18/16 MR#: [id number] REPORT SERV DATE: 10/18/16 DICTATED BY: ERIC POLLOCK III DATE: 10/18/16 REPORT STATUS : Draft TRANSCRIBED BY: MODL DATE: 10/18/16 loss 250 mL. The only complication was the intraoperative bleeding, which was controlled. The patient will be kept in the hospital overnight for observation secondary to the bleeding and his more frail condition on numerous medications. RB/TOVA Eric Pollock III, M.D. / [id number] CC: Lolita Montilla III, M.D.
--- NOTE | ~2016-10-18 | CN ---
Consultation Report [facility] [address] [place]. [address] NAME: CINTIA RANKIN JR : 50 STATUS : ADM Tyrell PAT#: [id number] AGE: 65 ADM/REG DATE : 10/18/16 MR#: [id number] REPORT SERV DATE: 10/18/16 DICTATED BY: DATE: REPORT STATUS : Draft TRANSCRIBED BY: MODL DATE: 10/18/16 CONSULTATION REPORT DATE OF CONSULTATION: REASON FOR CONSULTATION: Renal transplant. HISTORY OF PRESENT ILLNESS: Mr. Rankin is a 65-year-old white male with a history of kidney transplant x2. He is in the hospital at this time for cholecystectomy which he underwent by Dr. Pollock earlier in the day. He had a laparoscopic cholecystectomy with intraoperative cholangiogram. He did have some blood loss, and he does have a drain in place. He states prior to surgery he is having no issues. His last hospitalization was in September. He was having problems with recurrent UTIs. He has had no symptoms of that prior to surgery. No shortness of breath. His most recent issues have been related to neck pain. He states he has been to two different doctors who state there is no intervention for this neck pain. PAST MEDICAL HISTORY: Coronary artery disease status post bypass, peripheral vascular disease with stents, IgA nephropathy. He has had polyomavirus and one failed kidney transplant, depression, recurrent UTI's, post traumatic stress disorder. SOCIAL HISTORY: He is . No tobacco, alcohol, or illicit drug use. FAMILY MEDICAL HISTORY: No end-stage renal disease. ALLERGIES: MORPHINE, DOXYCYCLINE, AND DILAUDID. MEDICATIONS: At home albuterol, allopurinol, aspirin, Dulcolax, Wellbutrin, Coreg, cefadroxil, Plavix, Valium, Lasix, Glucotrol, Imdur, Arava, Imodium, multivitamin, nitroglycerin, Mycostatin, omega-3 fatty acid, Percocet, Protonix, prednisone, Actonel, Onglyza, simvastatin, tacrolimus, Flomax, Restoril, K-Phos Neutral, and Valcyte. REVIEW OF SYSTEMS: A 12-point review of systems obtained, negative with the exception of that in HPI. PHYSICAL EXAMINATION: VITAL SIGNS: Temp 98.2, blood pressure is 124/59, pulse 64, respiratory rate 16, O2 saturation 99%. GENERAL: This is a pleasant, cooperative, white male. He is awake, alert, oriented. HEENT: Normocephalic and atraumatic. Conjunctivae clear. Sclerae anicteric. Pupils are equal and round. Oral mucosa is dry. RESPIRATIONS: Even and unlabored. CHEST: Breath sounds clear to auscultation. NECK: Supple. Carotids are brisk. Neck veins flat. No lymphadenopathy. HEART: Rate is regular. No murmur, rub, or gallop. Consultation Report [place] [address] [place] [place] [address] NAME: CINTIA RANKIN JR : 50 STATUS : ADM Tyrell PAT#: [id number] AGE: 65 ADM/REG DATE : 10/18/16 MR#: [id number] REPORT SERV DATE: 10/18/16 DICTATED BY: DATE: REPORT STATUS : Draft TRANSCRIBED BY: MODSidney DATE: 10/18/16 ABDOMEN: Soft. I do not hear any bowel sounds but it is immediately postop. Right now, he has got a drain in the left abdomen with bloody drainage. EXTREMITIES: No edema, cyanosis, or clubbing. SKIN: No unusual rash or skin lesions. NEURO: No focal deficits. Mood and affect, pleasant and appropriate. PERTINENENT LAB AND X-RAYS: His postop H and H are 11 and 35. His preop labs were done on 10/16/2016 with white blood cell count 6, H and H 12 and 39, platelets 115,000. Sodium 140, potassium 4.1, chloride 103, CO2 of 36, BUN of 37, creatinine 1.6. Albumin 3.2, bilirubin 0.6, alkaline phosphatase 167, SGOT of 54, SGPT of 32, amylase lipase 72 and 104. IMPRESSION: 1. Renal transplant. 2. Cholelithiasis status post laparoscopic cholecystectomy postop day 0. 3. Diabetes. 4. Ischemic cardiomyopathy with history of atrioventricular septal defect. 5. Neck pain. PLAN: Kidney function was at baseline prior to surgery. We will follow labs along with you. Continue his usual immune suppression. If he drops his blood pressure, we will add some stress dose steroids if needed. Follow CBC and follow along with you. Thank you for the consultation. ALLEN/TOVA ORQUIDEA Christensen / [id number] CC: Julio Pollock III, M.D.
[~2016-10-18 08:22] MED LIST changes: +CEFADROXIL1 GM PO; +FLOMAX4 PO; +L20 PO; +NITROSTAT0.4 MG SL; +SACU1TAB PO
[2016-10-18 15:55] LABS: HEMATOCRIT 35.7 % (40.0-51.0); HEMOGLOBIN 11.6 g/dL (13.6-17.8)
[2016-10-19 05:09] LABS: BASOPHILS 0 %; EOSINOPHILS 0.3 %; EOSINOPHILS ABSOLUTE 0.02 10/3/uL (0.0-0.53); HEMATOCRIT 34.4 % (40.0-51.0); HEMOGLOBIN 11.3 g/dL (13.6-17.8); IMMATURE GRANULOCYTES 0.4 %; IMMATURE GRANULOCYTES ABSOLUTE 0.03 10/3/uL (0.0-0.11); LYMPHOCYTES 5.9 %; LYMPHOCYTES ABSOLUTE 0.43 10/3/uL (0.67-4.30); MEAN CORPUS HGB CONC 32.8 g/dL (32.0-36.0); MEAN CORPUSCULAR HEMOGLOB 35.6 pg (26.0-34.0); MEAN CORPUSCULAR VOLUME 108.5 fL (80-100); MONOCYTES 5.2 %; MONOCYTES ABSOLUTE 0.38 10/3/uL (0.21-1.20); NEUTROPHILS 88.2 %; NEUTROPHILS ABSOLUTE 6.47 10/3/uL (2.02-8.40); PLATELET COUNT 105 10/3/uL (150-400); RBC DISTRIBUTION WIDTH 15.9 % (12.0-16.0); RED CELL COUNT 3.17 10/6/uL (4.7-6.1); WHITE BLOOD CELLS 7.3 10/3/uL (4.5-10.5)
[2016-10-19 05:12] LABS: MANUAL DIFF NO %
[2016-10-19 05:16] LABS: INTERNATIONAL NORMAL RATI 1.1 UNITS (-); PARTIAL THROMBO TIME 29.5 SEC (22.5-37.2); PROTIME (NOT ORD) 14.4 SEC (12.0-14.5)
[2016-10-19 05:26] LABS: ALBUMIN 2.9 G/DL (3.5-5.0); ALKALINE PHOSPHATASE 123 U/L (45-117); BUN (BLOOD UREA NITROGEN) 31 MG/DL (6-23); CALCIUM, SERUM 8.2 MG/DL (8.5-10.4); CHLORIDE, SERUM 104 MMOL/L (96-112); CO2 (CARBON DIOXIDE) 27 MMOL/L (24-34); CREATININE 1.45 MG/DL (0.70-1.30); GFR AFRICAN AMERICAN 58 ML/MIN (>=60); GFR NON AFRICAN AMERICAN 50 ML/MIN (>=60); GLOBULIN 2.9 G/DL (2.5-4.1); GLUCOSE, SERUM 301 MG/DL (60-99); POTASSIUM, SERUM 4.6 MMOL/L (3.5-5.3); SGOT(AST) 52 U/L (5-40); SGPT(ALT) 64 U/L (5-65); SODIUM, SERUM 138 MMOL/L (135-148); TOTAL BILIRUBIN 0.4 MG/DL (0-1.2); TOTAL PROTEIN 5.8 G/DL (6.0-8.5)
[2016-10-19] MEDS ORDERED: PCET PO (13:35)
[2016-10-19] MEDS ORDERED: ZOFRAN4 PO (13:36)
[2016-11-02] MEDS ORDERED: COREG25 PO (12:12)
== END 2016-10-19 16:47 | disposition home or self-care (01) ==
LOC: SDC 08:22 → SDC/OF 13:02 → 5SO 14:12
PROVIDERS: Surgery
PROC: BF13YZZ Fluoroscopy of Gallbladder and Bile Ducts using Other Contrast (ICD-10-PCS; 2016-10-18)
PROC: 0FT44ZZ Resection of Gallbladder, Percutaneous Endoscopic Approach (ICD-10-PCS; principal; 2016-10-18 09:45)
DX: K81.1 Chronic cholecystitis (principal); E11.9 Type 2 diabetes mellitus without complications; I25.10 Atherosclerotic heart disease of native coronary artery without angina pectoris; F32.9 Major depressive disorder, single episode, unspecified; I10 Essential (primary) hypertension; K21.9 Gastro-esophageal reflux disease without esophagitis; M79.7 Fibromyalgia; F41.9 Anxiety disorder, unspecified; I25.5 Ischemic cardiomyopathy; F43.10 Post-traumatic stress disorder, unspecified; Z88.8 Allergy status to other drugs, medicaments and biological substances; Z79.82 Long term (current) use of aspirin; Z88.5 Allergy status to narcotic agent; Z88.1 Allergy status to other antibiotic agents; Z79.899 Other long term (current) drug therapy; Z79.01 Long term (current) use of anticoagulants; Z95.1 Presence of aortocoronary bypass graft; Z94.0 Kidney transplant status; Z87.891 Personal history of nicotine dependence
CPT/HCPCS: 36415; 74300; 76000; 80053; 82150; 82962; 83690; 83735; 85014; 85018; 85025; 85610; 85730; 86850; 86900; 86901; 86920; 88304; 93005; 96374; 96375; 96376; A9270-GY; G0378; J0690; J1720; J2250; J2370; J2405; J2550; J2710; J3010; J7507; Q9967